=== PATIENT | female | born 1985 | race Caucasian/White ===

== ENCOUNTER 2020-05-13 21:19 | Emergency (ER) | payer OTHER ==
--- NOTE | 2020-05-13 21:29 | ED Physician Documentation ---
PD HPI HEENT - Stated complaint Stated Complaint: RT EAR PAIN - Chief complaint Chief Complaint: Heent - History obtained from History obtained from: Patient - History of Present Illness Timing - onset: How many days ago (2-3) Timing - duration: Days Timing - details: Gradual onset Pain level now: 3 Location: Right ear Improves: Nothing Worsens: Other (palpation (outer ear, tragus), traction on pinna) Associated symptoms: Headache. No: Fever Recently seen: Not recently seen - Additional information Additional information: c/o atraumatic right ear pain, gradual onset 2-3 days ago but steadily progressive. the pain radiates to right mandible and right side of neck Review of Systems Constitutional: denies: Fever Ears: reports: Ear pain, Drainage/discharge (scant discharge right ear). denies: Loss of hearing Throat: denies: Sore throat PD PAST MEDICAL HISTORY - Past Medical History Past Medical History: No - Present Medications Home Medications: Ambulatory Orders Medication Instructions Recorded Confirmed Ciproflox/Dexameth Otic Drops 4 drops RIGHTEAR BID 10 Days 05/13/20 [Ciprodex] #5.334 ml - Allergies Allergies/Adverse Reactions: Allergies Allergy/AdvReac Type Severity Reaction Status Date / Time No Known Drug Allergies Allergy Verified 05/13/20 21:26 - Living Situation Living Arrangement: reports: At home PD ED PE NORMAL - Vitals Vital signs reviewed: Yes - General General: Alert and oriented X 3, No acute distress, Well developed/nourished - Neck Neck: Supple, no meningeal sign PD ED PE EXPANDED - HEENT HEENT: Other (dry, flaky skin noted biltaeral ears externally. right ear external auditory canal is mildly erythematous, mild edema of the canal, and trace discharge without any areas of fluctuance. Pain with pressure to tragus, light traction on helix/pinna. right TM is normal in appearance) Results - Vitals Vitals: Vital Signs - 24 hr 05/13/20 21:23 Temperature 36.6 C Heart Rate 76 Respiratory 16 Rate Blood Pressure 139/78 H O2 Saturation 100 Oxygen O2 Source Room air PD MEDICAL DECISION MAKING - ED course Complexity details: considered differential, d/w patient ED course: H+P c/w right external otitis media, likely a result of ongoing skin breakdown associated with what appears to be dermatitis; given the dry, flaky skin and that it is localized to bilateral ears, seborrheic dermatitis is suspected. She says she has a steroid cream prescribed but that it has not helped. She says the ears have had this appearance for several months. Will give ciprodex drops to right ear tonight, and provided with rx for same. Departure - Departure Disposition: 01 Home, Self Care Clinical Impression: Otitis externa, Dermatitis Condition: Good Instructions: ED Otitis Externa Follow-Up: [facility] [Provider Group] Prescriptions: Ciproflox/Dexameth Otic Drops [Ciprodex] 4 drops RIGHTEAR BID 10 Days #5.334 ml Comments: Try Denorex shampoo on the dry skin of your ears. There are two different types that are available; I recommend the Denorex with coal tar (check label). Apply a small amount with water for lather to the skin of the ears and then rinse off after 3-5 minutes. Do this once per day for 1 week. If no results, contact your primary care provider for reassessment. If the shampoo seems to clear up or significantly improve the dry skin, you can continue to use it as needed.
[2020-05-13] MEDS ORDERED: CIPROFLOX/DEXAMETH OTIC DROPS RIGHTEAR STA (21:45)
[2020-05-13 22:02] VITALS: BP 138/76
== END 2020-05-13 22:02 | disposition home or self-care (01) ==
LOC: ED 21:19
DX: H60.91 Unspecified otitis externa, right ear (principal); L30.9 Dermatitis, unspecified; L85.3 Xerosis cutis
CPT/HCPCS: 99282; 99283; A9270